=== PATIENT | female | born 1990 | race Two or more races ===

== ENCOUNTER 2025-11-08 16:55 | Emergency (ER) | payer MEDICAID, SELFPAY ==
[2025-11-08 17:35] VITALS: BP 123/78; PULSE 99; RESP 18; TEMP 36.9; O2SAT 98; BMI 21.9
--- NOTE | 2025-11-08 17:42 | PD.EDANIML ---
ED Animal Bite RME/HPI General Chief Complaint: Animal Bite Stated Complaint: BITE TO R THIGH X 3 DAYS BY POSSIBLE SPIDER Time Seen by Provider: 11/08/25 17:38 Arrival date/time: 11/08/25 16:55 This is a 35-year-old female that comes into the emergency room with complaints of some redness to her right inner thigh. Patient states this started about 3 days ago. Patient thinks she got a spider bite. Patient denies any other complaints. Patient denies any fever or chills. Related Data Previous Rx's ?Medication ?Instructions ?Recorded ibuprofen 600 mg tablet 600 mg PO Q8H PRN pain #30 tabs 02/17/21 ibuprofen 800 mg tablet 800 mg PO Q6H PRN pain #14 tabs 11/08/25 Allergies Allergy/AdvReac Type Severity Reaction Status Date / Time No Known Allergies Allergy Verified 11/08/25 16:58 Review of Systems Review of Systems Systems Reviewed: All systems reviewed, normal except as documented Past Medical History Past Medical History CARDIAC: Negative Congestive Heart Failure RESPIRATORY: Negative Chronic Obstructive Pulmonary Disease (COPD) GENITOURINARY: Negative Renal Disease ENDOCRINE: Negative Diabetes Mellitus Type 1 or Diabetes Mellitus Type 2 Surgical History SURGICAL: Positive Section Social History SMOKING STATUS: Current every day smoker Travel History EBOLA RISK: No ED Exam Narrative Physical exam: VITAL SIGNS: Reviewed. GENERAL APPEARANCE: Alert and interactive, follows commands, no acute distress HEAD AND FACE: Non-traumatic. ENT: PERRL, conjuctiva pink and clear, eyelid no trauma, Mucous membrane moist. NECK: Supple, nontender, no nuchal rigidity. CHEST: No tenderness, no crepitus, no paradoxical movement, no retractions. LUNGS: breathing even and unlabored HEART: Regular rate, cap refill less than 2 seconds ABDOMEN: Soft, nondistended, no guarding, nontender, no rebound, no masses, NEUROLOGICAL: Gross motor function intact sensory function intact, Appropriate for age. MUSCULOSKELETAL: low back nontender, full range of motion. no midline tenderness, no meningismus, no step offs EXTREMITIES: No redness no swelling no skin breakdown on bilateral foot and leg. Distal neurovascular status intact bilateral foot SKIN: Color pink, dry, and 6 x 5 cm area of erythema approximately right inner thigh that appears to have a little spot in the middle. Area appears indurated no fluctuance noted Course Quality Measures none Orders Category Date Time Status Acetaminophen Tab [Tylenol ES Tab] Med 11/08/25 17:40 Discontinued 1,000 mg PO X1 ONE Doxycycline [Vibramycin] Med 11/08/25 17:40 Discontinued 100 mg PO X1 ONE Ibuprofen Tab [Motrin Tab] Med 11/08/25 17:40 Discontinued 800 mg PO X1 ONE Ondansetron Odt [Zofran Odt] Med 11/08/25 17:40 Discontinued 4 mg PO X1 ONE cefTRIAXone [Rocephin] 1,000 mg Med 11/08/25 17:41 Discontinued Lidocaine 1% Pf Vial 5ml [Xylocaine 1% Pf 5 ml] 2.1 ml IM X1 Vital Signs Vital signs: Vital Signs Temperature 98.4 F 11/08/25 17:35 Pulse Rate 99 11/08/25 17:35 Respiratory Rate 18 11/08/25 17:35 Blood Pressure 123/78 11/08/25 17:35 Pulse Oximetry (%) 98 11/08/25 17:35 Oxygen Delivery Method Room Air 11/08/25 17:35 Animal Bite MDM Narrative MDM Narrative:: At this point there is nothing to drain. There is no abscess but there is cellulitis. Skin appears indurated. I explained to patient to use warm compresses at home every 4 hours. I told patient that we would give her a dose of Rocephin here and also give her a dose of doxycycline. Patient will be discharged on doxycycline at home. Patient will follow-up with primary provider in 1 to 2 days. Come back to the emergency room symptoms change or worsen. I did explain to patient that abscesses sometimes open on her own and sometimes a well and they will need to be opened by a medical provider. Patient verbalized understanding patient did come back to the emergency room symptoms change or worsen. Dragon dictation: Although this document has been carefully reviewed, there may still be some phonetic and other typographical errors. These errors are purely grammatical due to imperfections in the software program and should not be construed in any way to compromise the substance of the patient's medical care during this visit. Patient data External records reviewed:: [facility] previous records Clinical information provided by:: patient Social determinants that could affect healthcare access:: none Patient has the following chronic illnesses:: see note How is presenting disease/condition affected by chronic disease/condition?: no chronic disease Evaluation data The following diagnostics were reviewed and interpreted by me:: other (specify) (none) Lab and/or radiology exams considered but not ordered:: see note Interpretation Summary: see note Medications / Prescriptions Medications or Prescriptions considered but not ordered:: see note Medication administrations:: Medication Administration History Discontinued Medications Acetaminophen (Acetaminophen 500 Mg Tablet) 1,000 mg PO X1 ONE Stop: 11/08/25 17:41 Last Admin: 11/08/25 17:58 Dose: 1,000 mg Documented By: BRIELLE Ceftriaxone Sodium 1,000 mg/ (Lidocaine HCl 2.1 ml) 0 mg IM X1 ONE Stop: 11/08/25 17:42 Last Admin: 11/08/25 17:58 Dose: 1,000 mg Documented By: BRIELLE Doxycycline Hyclate (Doxycycline 100 Mg Tablet) 100 mg PO X1 ONE Stop: 11/08/25 17:41 Last Admin: 11/08/25 17:58 Dose: 100 mg Documented By: BRIELLE Ibuprofen (Ibuprofen Tab 400 Mg Tablet) 800 mg PO X1 ONE Stop: 11/08/25 17:41 Last Admin: 11/08/25 17:57 Dose: 800 mg Documented By: BRIELLE Ondansetron HCl (Ondansetron Odt 4 Mg Tabrap) 4 mg PO X1 ONE; Protocol Stop: 11/08/25 17:41 Last Admin: 11/08/25 17:57 Dose: 4 mg Documented By: BRIELLE see mar Consultations Consultation(s) initiated? (list below): No Diagnosis Most likely diagnosis given after review of the tests above:: see note Admission Indicated Admission indicated?: not indicated Admission Request Was there a request for admission?: No Disposition Plan Disposition Plan: Discharge Discharge Attestation Discharge Attestation: The patient and all family members were given an opportunity to ask questions and understood the discharge instructions. Discharge instructions specifically effects, indications for sooner follow up or return to the emergency department, and the expected course of current diagnosis. Patient condition: Stable Discharge Plan Plan Patient Disposition: HOME (Self Care) Patient condition on transfer: Stable Prescriptions/Referrals Prescriptions/Med Rec: New ibuprofen 800 mg tablet 800 mg PO Q6H PRN (Reason: pain) Qty: 14 0RF No Action ibuprofen 600 mg tablet 600 mg PO Q8H PRN (Reason: pain) Qty: 30 0RF Problem List Clinical Impression: Cellulitis Patient/Caregiver Discharge Instructions Discharge Activity: activity as tolerated Education Materials: ED Cellulitis Additional Instructions: Do warm compresses to right inner thigh every 4 hours. Take antibiotics as prescribed. Print Language: Luxembourgish Stand Alone Forms: Leigha Award Info., Patient Portal Info Letter PA/FINANCIAL MANAGEMENT CONSULTANT Supervising Physician PA/FINANCIAL MANAGEMENT CONSULTANT Supervising Physician: cory
[2025-11-08] MEDS: IBUPROFEN TAB 400 MG TABLET 800 MG PO (17:57)
[2025-11-08] MEDS: ONDANSETRON ODT 4 MG TABRAP PO (17:57)
[2025-11-08] MEDS: ACETAMINOPHEN 500 MG TABLET 1000 MG PO (17:58)
[2025-11-08] MEDS: DOXYCYCLINE 100 MG TABLET PO (17:58)
== END 2025-11-08 18:13 | disposition home or self-care (01) ==
LOC: SERX 18:57
PROVIDERS: Emergency Provider Family Medicine
DX: L03.115 Cellulitis of right lower limb (principal)
CPT/HCPCS: 96372; 99282; J0696; J3490; Q0162; A9270